=== PATIENT | male | born 2005 | race Caucasian/White ===

== ENCOUNTER 2025-09-22 16:12 | Outpatient (AMB) | payer OTHER, SELFPAY ==
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
[2025-09-22 16:18] VITALS: BP 140/65; PULSE 83; RESP 18; TEMP 36.4; O2SAT 98; BMI 22.4
--- OUTSIDE RECORDS SUMMARY | 2025-09-22 19:06 | XMS_ITS ---
Author Name [facility] Organization Unknown Care Team Organization Name Specialty Phone Email Start Date End Da te [facility] ([facility])
--- OUTSIDE RECORDS SUMMARY | 2025-09-22 19:06 | XMS_ITS | Encounter Summary ---
Author Organization [facility] Address [address] [place] [address] Phone Care Team Providers Care Motion Picture Camera Lens Technician Name Role Phone Manuel Elena MD Primary Care Provider [phone] Reason for Visit * Reason Comments Med Change Request Encounter Details Date Type Department Care Team (Late st Contact Info) Description 09/19/2023 Refill [facility] - [place] [address] [place] [address] Manuel Elena MD [address] [place] [address] Persistent depressive disorder Social History Tobacco Use Types Packs/Day Years Used Date Smoking Tobacco: Never Smokeless Tobacco: Never Alcohol Use Standard Drinks/Week Comments Never 0 (1 standard drink = 0.6 oz pur e alcohol) Hunger/Food Answer Date Recorded In the last 12 months, did y ou or your family ever eat less than you felt you should because there wasn't enough money for food? No 10/20/2022 Stable Housing Answer Date Recorded Are you worried that in the next 2 months you may not have stable housing? No 10/20/2022 Transportation Concerns Answer Date Rec orded In the last 12 months, have you or your family ever had to go without healthcare because you didn't have a way to get there? No 10/20/2022 Hazards in Home Answer Date Recorded Think about the place you li ve. Do you have problems with any of the following? Pests (mice or roaches), mold, no/not working smoke detectors, water leaks, no window guards. No 2022 Financing Utilities Answer Date Recorde d In the last 12 months, has t he electric, gas, oil, or water company threatened to shut off your services in your home? No 10/20/2022 Safety at Home Answer Date Recorded Are you or your family worried about feeling saf e in your home? No 10/20/2022 Outside Support Answer Date Recorded Do you feel that you need mo re support from other people or programs to help you care for yourself or your family? No 10/20/2022 Understanding Health Concerns Answer Da te Recorded Do you need help understandi ng your or your child's healthcare needs (diagnosis, medications, plan, etc.)? No 10/20/2022 Financing Health Concerns Answer Date R ecorded In the last 12 months, was t here a time when your child needed to see a doctor or get medications or supplies but could not because of cost? No 10/20/2022 Missing School or Work Answer Date Tunde rded Did you or your child miss s chool or work because of a health problem that could have been avoided? No 10/20/2022 Sex and Gender Information Value Date Recorded Sex Assigned at Male 09/01/2024 9:03 AM EST Legal Sex Male 4:41 PM EST Gender Identity Male 09/01/2024 9:03 AM EST Sexual Orientation Choose not to answer 09/10/20 24 2:52 PM EST documented as of this encounter Miscellaneous Notes * Telephone Encounter - Jh Jansen MD - 09/19/2023 10:52 AM EST 90D refill not appropriate, med changes underway documented in this encounter Plan of Treatment Upcoming Encounters Date Type Department Care Team (Late st Contact Info) Description 03/10/2026 10:20 AM EDT Office Visit [facility] - [address], [address] [place] [address] Manuel Elena MD [address] [place] [id number] documented as of this encounter Visit Diagnoses Diagnosis Persistent depressive disorder documented in this encounter Care Teams Motion Picture Camera Lens Technician Relationship Specialty Start Date End Date Manuel Elena MD [address] [place] [id number] PCP - General 11/14/16 documented as of this encounter
--- OUTSIDE RECORDS SUMMARY | 2025-09-22 19:06 | XMS_ITS | Encounter Summary ---
Author Organization [facility] Address [address] [place] [address] Phone Care Team Providers Care Loan Teller Name Role Phone Manuel Elena MD Primary Care Provider Reason for Visit * Reason Comments Med Refill Encounter Details Date Type Department Care Team (Late st Contact Info) Description 07/14/2023 Refill [facility] - [place] [address] [place] [address] Manuel Elena MD [address] [place] [address] Persistent depressive disorder Social History Tobacco Use [...] encounter Miscellaneous Notes * Telephone Encounter - Floresita Morel - 07/23/2023 9:11 AM EDT scheduled * Telephone Encounter - Jazmín Peñaloza LPN - 2023 2:55 PM EDT Return call with no answer,m /l on vm to cb to discuss further the refill request. documented in this encounter Plan of Treatment Upcoming Encounters Date Type Department Care Team (Late st Contact Info) Description 03/10/2026 10:20 AM EDT Office Visit [facility] - [address], [address] [place] [address] Manuel Elena MD [address] [place] [address] documented as of this encounter Visit Diagnoses Diagnosis Persistent depressive disorder documented in this encounter Care Teams Loan Teller Relationship Specialty Start Date End Date Manuel Elena MD [address] [place] [address] PCP - General 11/14/16 documented as of this encounter
--- OUTSIDE RECORDS SUMMARY | 2025-09-22 19:06 | XMS_ITS | Encounter Summary ---
Author Organization [facility] Address [address] [place] [address] Phone Care Team Providers Care Ultrasound Technologist Sonographer Name Role Phone Manuel Elena MD Primary Care Provider [phone] Reason for Visit * Reason Onset Date Comments Med Refill 04/03/2023 Encounter Details Date Type Department Care Team (Late st Contact Info) Description 04/03/2023 Refill [facility] - [place] [address] [place] [address] Manuel Elena MD [address] [place] [address] Persistent depressive disorder Social History Tobacco Use [...] Sexual Orientation Choose not to answer 09/10/20 2:52 PM EST documented as of this encounter Miscellaneous Notes * Telephone Encounter - Jazmín Peñaloza LPN - 04/03/2023 3:20 PM EDT Refill request for Lexapro 10 mg Last fill was 03/06/23 Last wcv was 09/2022 Last med check was 03/06/23 Please send to [facility] documented in this encounter Plan of Treatment Upcoming Encounters Date Type Department Care Team (Late st Contact Info) Description 03/10/2026 10:20 AM EDT Office Visit [facility] - [address], [address] [place] [address] Manuel Elena MD [address] [place] [address] documented as of this encounter Visit Diagnoses Diagnosis Persistent depressive disorder documented in this encounter Care Teams Ultrasound Technologist Sonographer Relationship Specialty Start Date End Date Manuel Elena MD [address] [place] [address] PCP - General 11/14/16 documented as of this encounter
--- OUTSIDE RECORDS SUMMARY | 2025-09-22 19:06 | XMS_ITS | Encounter Summary ---
Author Organization [facility] Address [address] [place] [address] Phone Care Team Providers Care Prepress Proofer Name Role Phone Manuel Elena MD Primary Care Provider [phone] Reason for Visit * Reason Comments Med Refill Encounter Details Date Type Department Care Team (Late st Contact Info) Description 06/29/2022 Refill [facility] [place] [address] [place] [address] Dominique Panda MD [address] [place] [address] Nausea with vomiting, unspecified; Abnormal weight loss Social History Tobacco Use Types Packs/Day Years Used Date Smoking Tobacco: Never Assessed Hunger/Food Answer Date Recorded In the last 12 months, did y ou or your family ever eat less than you felt you should because there wasn't enough money for food? No 06/14/2021 Stable Housing Answer Date Recorded Are you worried that in the next 2 months you may not have stable housing? No 06/14/2021 Transportation Concerns Answer Date Rec orded In the last 12 months, have you or your family ever had to go without healthcare because you didn't have a way to get there? No 06/14/2021 Hazards in Home Answer Date Recorded Think about the place you li ve. Do you have problems with any of the following? Pests (mice or roaches), mold, no/not working smoke detectors, water leaks, no window guards. No 2020 Financing Utilities Answer Date Recorde d In the last 12 months, has t he electric, gas, oil, or water company threatened to shut off your services in your home? No 06/14/2021 Safety at Home Answer Date Recorded Are you or your family worried about feeling saf e in your home? No 06/14/2021 Outside Support Answer Date Recorded Do you feel that you need mo re support from other people or programs to help you care for yourself or your family? No 06/14/2021 Understanding Health Concerns Answer Da te Recorded Do you need help understandi ng your or your child's healthcare needs (diagnosis, medications, plan, etc.)? No 06/14/2021 Financing Health Concerns Answer Date R ecorded In the last 12 months, was t here a time when your child needed to see a doctor or get medications or supplies but could not because of cost? No 06/14/2021 Missing School or Work Answer Date Tunde rded Did you or your child miss s chool or work because of a health problem that could have been avoided? No 06/14/2021 Sex and Gender Information Value Date Recorded Sex Assigned at Male 09/01/2024 9:03 AM EST Legal Sex Male 4:41 PM EST Gender Identity Male 09/01/2024 9:03 AM EST Sexual Orientation Choose not to answer 09/10/20 24 2:52 PM EST documented as of this encounter Plan of Treatment Upcoming Encounters Date Type Department Care Team (Late st Contact Info) Description 03/10/2026 10:20 AM EDT Office Visit [facility] - [address], [address] [place] [address] Manuel Elena MD [address] [place] [id number] documented as of this encounter Visit Diagnoses Diagnosis Nausea with vomiting, unspecified Abnormal weight loss Loss of weight documented in this encounter Care Teams Prepress Proofer Relationship Specialty Start Date End Date Manuel Elena MD [address] [place] [address] PCP - General 11/14/16 documented as of this encounter
--- OUTSIDE RECORDS SUMMARY | 2025-09-22 19:06 | XMS_ITS | Clinical Summary ---
Author Organization [facility] Address [address] [place] [address] Phone Care Team Providers Care Vice President Underwriting Name Role Phone Manuel Elena MD Primary Care Provider [phone] Allergies Active Allergy Reactions Criticality Noted Date Comments Penicillin V Rash Low Medications Denta 5000 Plus 1.1 % cream USE A PEA SIZE AMOUNT TO BRUSH AT NIGHT. SPIT DO NOT RINSE 03/26/2021 Active Melatonin-Pyrid oxine (MELATIN PO) Take 5 mg by mouth. Active amphetamine-dex troamphetamine XR (Adderall XR) 10 MG 24 hr capsuleIndicati ons:Inattention Take 1 capsule (10 mg total) by mouth every morning. 30 capsule 08/28/2024 Active buPROPion XL 300 MG 24 hr tabletIndicatio ns:Severe episode of recurrent major depressive disorder, without psychotic features TAKE 1 TABLET BY MOUTH EVERY DAY 90 tablet 11/27/2024 Active Active Problems Problem Noted Date Diagnosed Date Attention and concentration deficit 2024 Overview (08/14/2024): 07/17/24 PF Increase of Wellbutrin XL from 150 to 300 has been a little helpful with depression and motivation but still very depressed and anxious, PHQ-9= 20, ROSARIO-7=13, passive SI no plan or intent. Feels hopeless about medication or therapy helping, not open to therapy at this time. Struggling to complete school work, stay motivated and manage organizational tasks. He reports ongoing suspicion he has ADHD, plan to seek more collateral info and he will complete ADHD adult self-report scale. Follow up visit scheduled 08/14. 08/14/24 PF Seen for med check. Does not know if Wellbutrin XL 300 mg helps or not but wants to continue it. PHQ-9 = 21, ROSARIO-7= 13. Chronic passive SI no plan or intent. Reports falling behind in all classes and socially isolated. Believes he has ADHD and that focus issues and difficulty with school work are the primary thing fueling depression. Adult self report ADHD scale=5, abnormal. Denies substance use. States he has not re-engaged with therapy because I don't have time and also expresses it has not been very helpful in the past. This story writer to reach out to his mom for collateral info and to discuss possible next steps with PCP and other colleagues, then reach out to Stan with update. Next med check TBD. Major depressive disorder 11/15/2022 Overview (08/14/2024): 11/2022: Met with [facility], trial of fluoxetine 12/2022: Tolerating fluoxetine 10mg. Still having significant symptoms for depression. Suicidal thinking. - Increase fluoxetine to 30mg daily - Encouraged daily exercise 03/06/2023: PHQ-9 score still 16 after 6 weeks on fluoxetine. Still having insomnia. - Will taper off fluoxetine and ramp up on escitalopram - Will continue to follow with [facility] - Encouraged partial hospitalization this summer05/08/2023 Completed 3.5 weeks in [facility] 04/11-05/04/2023 w/out much effect. PHQ-9 score of 13. SI 3-4x/wk, difficulty falling asleep nightly. Taking 10mg escitalopram daily in the morning. Plan to begin with weekly outpatient therapist, increased fluoxetine to 15 mg 06/18/2023 Ongoing suicidal thinking; denies intent or plan. Completed episode of care with [facility]; meeting weekly with outpatient therapist Keshia Walker. 08/02/2023 Ongoing passive suicidal thinking. Has weekly outpatient therapy. Increasing Lexapro to 20 mg daily 01/29/24 PF Seen for 30 minute med check appointment. Reports he is very depressed, does not feel either fluoxetine or escitalopram ever helped much at all. PHQ-9 23. Passive SI, occasionally thinks about overdosing but states clearly he will not act on this, agrees to reach out for help if this changes, has crisis resource info. Plan to taper off escitalopram and then start Effexor XR 37.5 mg, follow up scheduled in person for 02/20. Agrees to sign release for mom only to give basic info about med changes. Has upcoming appts scheduled with Jaki. 02/21/24 PF med check- has now been off Lexapro x 5 days, having more fatigue and frequent uncomfortable tingling sensations when reducing to 10 and now when stopping. Plan to take Lexapro 5 mg x 3 days, then stop, may take 5 every other day x 1 wk if uncomfortable. PHQ-9 19, ROSARIO-7 8. Chronic SI but states he will not act on it. States fatigue and concentration are major issues. Plan to start Wellbutrin XL 150 mg daily once off Lexapro. Med check 03/24. 03/10/2024 Started Wellbutrin XL 150mg 02/27/2024. Concerns for side effects of bad dreams, increased anxiety (with acknowledgement that this may be circumstantial). Med check 03/24. 06/17/24 PF Last seen 4 months ago, started Wellbutrin XL 150 and not seen since due to Stan not following up and insurance issues.Continues to report severe depression symptoms, feels apathetic and hopeless, reports passive SI no plan or intent. PHQ-9=22, ROSARIO-7=10. Does not feel Wellbutrin XL150 has helped but not sure. Agrees to re-engage in therapy with Jaki at [facility]. Expresses concerns that he may have ADHD and that he has difficulty learning in school. Agrees to sign release for mom for collateral re: ADHD symptom history and possible further detailed learning evaluation at an independent agency. Plan to increase Wellbutrin Xl to 300 mg daily. Med check 07/17. 07/17/24 PF Increase of Wellbutrin XL from 150 to 300 has been a little helpful with depression and motivation but still very depressed and anxious, PHQ-9= 20, ROSARIO-7=13, passive SI no plan or intent. Feels hopeless about medication or therapy helping, not open to therapy at this time. Struggling to complete school work, stay motivated and manage organizational tasks. He reports ongoing suspicion he has ADHD, plan to seek more collateral info and he will complete ADHD adult self-report scale. Follow up visit scheduled 08/14. 08/14/24 PF Seen for med check. Does not know if Wellbutrin XL 300 mg helps or not but wants to continue it. PHQ-9 = 21, ROSARIO-7= 13. Chronic passive SI no plan or intent. Reports falling behind in all classes and socially isolated. Believes he has ADHD and that focus issues and difficulty with school work are the primary thing fueling depression. Adult self report ADHD scale=5, abnormal. Denies substance use. States he has not re-engaged with therapy because I don't have time and also expresses it has not been very helpful in the past. This story writer to reach out to his mom for collateral info and to discuss possible next steps with PCP and other colleagues, then reach out to Stan with update. Next med check TBD. Assessment & Plan (02/25/2024 12:25 PM EDT): Ongoing depression and passive suicidal thinking. Engaged with [facility] services for support with career and education advancement. Has stopped Lexapro completely, plan to start Wellbutrin today. Plan to meet with [facility] for summer support, and with Ellie Phillips for short term medication management, while working on connecting to community or campus mental health services. Assessment & Plan (11/22/2023 4:21 PM EST): Ongoing depression and passive suicidal thinking. Is no longer engaged with therapist. Stan was able to meet with Jkai Garcia at [facility] today He will meet with her over the next few weeks and will meet with Ellie Phillips for medication consultation next month Assessment & Plan (09/07/2023 4:24 PM EST): There has not been any improvement on increase to Lexapro 20 mg. I would like to consult with my psychiatry colleagues at [facility] or [facility] for consultation and to consider change to trazodone or to an SNRI such as duloxetine. Will follow up in next few days. Recommend returning to therapy with Henna Walker - recommend contacting her to set up appointment, and arrange recheck here in next month Assessment & Plan (08/02/2023 2:44 PM EST): Ongoing depression with passive suicidal thoughts. Recommend increase of Lexapro to 20 mg daily Strongly recommend therapy followup, possibly increasing to more than once weekly Offered [facility] check in today - declined for now Reviewed crisis services - Stan says that he can contact his therapist, [facility], or crisis if needed. Has appt in 4 days with therapist. Recheck medication in 3-4 weeks, sooner if needed. If not helpful, will make psychiatry/[facility] referral for re-evaluation as he has been on 2 SSRIs Assessment & Plan (06/25/2023 2:58 PM EDT): Negative thinking, worry thoughts and increased stress in context of the new school year; ongoing thoughts that he would be better off , what's the point thoughts; denies suicidal intent or plan. Has begun meeting with weekly outpatient therapist, Keshia Walker. Taking Lexapro, 10mg daily; effect unclear. PLAN: Continue with weekly outpatient therapy. Communicate and consult regularly with PCP regarding medication. Assessment & Plan (05/15/2023 6:03 AM EDT): >>ASSESSMENT AND PLAN FOR MODERATE EPISODE OF RECURRENT MAJOR DEPRESSIVE DISORDER WRITTEN ON 12/06/2022 9:45 AM BY FAUSTO GARLAND MD Has met with [facility] who have concerns for major depressive disorder. No current suicidal thinking. - Dosing plan and possible medication side effects were discussed - Will start test dose of fluoxetine 10mg and will call family in one week in one week to assess tolerance - Will continue to meet with [facility] for four additional sessions - Will discuss effectiveness of fluoxetine via a video conference on 01/10/2023 after next visit with [facility] Assessment & Plan (05/15/2023 6:04 AM EDT): Escitalopram not fully effective. Recommend increase to 15 mg and recheck in 1-2 weeks. Continue with therapist. If still not effective, consider further increase to 20 mg. Assessment & Plan (05/08/2023 11:44 AM EDT): Negative self talk, passive SI 3-4x/wk, difficulty falling asleep nightly, PHQ-9 of 13. Completed 3.5 weeks in [facility] 04/11-05/04/2023. Taking 10mg escitalopram daily in the morning. Some forward thinking, working towards goal to get a job. Plan to meet with new outpatient therapist, Keshia ?. [facility] appointment scheduled for later this fall. Assessment & Plan (03/06/2023 5:26 PM EDT): PHQ-9 score still 16 after 6 weeks on fluoxetine. Still having insomnia. - Will taper off fluoxetine and ramp up on escitalopram - Will continue to follow with [facility] - Encouraged partial hospitalization this summer Assessment & Plan (01/10/2023 1:47 PM EDT): Tolerating fluoxetine 10mg. Still having significant symptoms for depression. Suicidal thinking. 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 Difficulty with school and relationships. Current suicidal ideation; denies intent or plan. PLAN: 1. Stan and his mom will return for an appointment with PCP, petra, to discuss medication for depression. 2. Stan and his mom will access crisis support services if needed to keep Stan safe. 3. Stan will meet with [facility] provider for at least 4 follow up visits to continue learning cognitive behavioral strategies for managing low moods, negative and anxious thinking. 4. Stan will participate in regular exercise, at least every other day. Intractable vomiting 12/04/2021 Overview (05/23/2022): Normal lactose breath test with GI/Dr. Daniel 04/2022 Assessment & Plan (03/11/2022 2:43 PM EDT): Improvement in vomiting and nausea. Still with limited appetite, however working on increasing PO intake. States omeprazole has provided some relief since starting. - Continue PPI - referred to GI for further evaluation for ongoing symptoms - has appt scheduled with nutrition tomorrow, encouraged to try and identify strategy for improving caloric intake. Assessment & Plan (12/04/2021 1:24 PM EDT): Daily vomiting and nausea causing limited food intake. Otherwise negative ROS and non focal exam. Will do screen lab and abdominal US to initiate work up. Will also start omeprazole for possible gastritis and zofran as needed for nausea to attempt to increase intake. May consider GI referral vs eating disorder management based on results. Advised to schedule follow up with PCP next week. Weight loss 12/04/2021 Assessment & Plan (03/11/2022 2:41 PM EDT): Weight gain since prior visit. Reports twice daily Boost nutritional supplements. Working on increasing caloric intake. Discussed reassuring bloodwork and imaging. Headache 06/09/2020 Overview (06/09/2020): At the back of his head, noted at 14 yo PE, feels tired. Adjustment disorder 04/13/2016 Overview (08/18/2019): Saw Rufina 04/2017 - no record of following up. Also referred to [facility]. 05/15/2018 Still some behavioral issues but does not want to go for counseling. 03/2019 - Worsening behavioral concerns, referred to therapy, had [facility] eval recommending therapy 06/2019-School psych testing showed negative self perception/dysthymia, some difficulty with math, slow processing speed Assessment & Plan (10/20/2022 4:45 PM EST): Still with dysthymic mood. Will re-engage with [facility] and consider medication. Assessment & Plan (06/14/2021 4:32 PM EDT): Stan states that he is doing better. He is not in counseling at the moment. He does get anxious about not doing well in school. He has supports through an IEP which he feels is helping. Mother feels he has done much better since transferring from [employer] to [employer] Assessment & Plan (06/09/2020 4:44 PM EDT): May visit with Rufina Sears at [facility] if feeling worse this year Assessment & Plan (04/04/2019 8:39 AM EDT): Significant concern for depression and anxiety. Strongly encourage ongoing therapy Discussed medication -- will consult with [facility]. While Stan does not think he needs medication, I encouraged him to think about it and gave information on medication Gave contact information for crisis and for text help line ([phone]) Will follow-up by phone in one week, sooner if needed Assessment & Plan (05/16/2018 7:33 AM EDT): Recommended f/u counseling to mom. Myopia 04/13/2016 Overview (05/15/2018): Referred to ophthal Assessment & Plan (06/14/2021 4:33 PM EDT): Has glasses. Sees eye doctor regularly. Resolved Problems Problem Noted Date Diagnosed Date Resolved Date Fracture of left distal radius 02/08/2018 04/26/2018 Overview (02/08/2018): Seen at [facility] 01/2018 Encounters Date Type Department Care Team Description 07/05/2025 Refill [facility] - [address] [address] Manuel Elena MD Inattention from Last 3 Months Immunizations Immunization Administration Dates Next Due DTaP 12/12/2006 DTaP / Hep B / IPV 02/20/2006,2005, 006 HPV Vaccine 9 Valent 06/09/2020,05/27/2019 Hep A, ped/adol 06/14/2021,06/09/2020 Hib (PRP-T) 12/12/2006, 6,2005,10/17 IPV 05/09/2011 Influenza, injectable, MDCK, preservative free, quadrivalent 07/09/2021,05/16/2020 Influenza, injectable, quadrivalent 05/17/2020 Influenza, injectable, quadr ivalent, preservative free 07/23/2022,08/30/2019 MMR 06/26/2012,05/05/2010 Meningococcal Conj (Menactra) MCV4P 04/30/2017 Meningococcal Conj (Menquadfi) MCV4TT 10/20/2022 Tdap 06/09/2020,04/25/2013 Varicella 06/26/2012,05/09/2011 Family History Relation Name Status Comments Father Father: GERD Maternal Grandfather Mat GFa ther: kidney disorder, migraine Maternal Grandmother Mat GMo ther: scoliosis, aneurysm Mother Alive Mother: allergi c rhinitis, eczema, food allergy, migraine Other 1 GERD Other 2 kidney disorder , migraine Other 3 scoliosis, aneu rysm Other 4 substance abuse Other 5 Alive allergic rhinit is, eczema, food allergy, migraine Other 6 Alive Brother - aller gic rhinitis, eczema; Sister - allergic rhinitis Paternal Grandfather Pat GFa ther: substance abuse Social History Tobacco Use Types Packs/Day Years Used Date Smoking Tobacco: Never Smokeless Tobacco: Never Tobacco Cessation:Counseling Given: Not Answered Alcohol Use Standard Drinks/Week Comments Never 0 (1 standard drink = 0.6 oz pur e alcohol) Hunger/Food Answer Date Recorded In the last 12 months, did y ou or your family ever eat less than you felt you should because there wasn't enough money for food? Yes 04/22/2025 Stable Housing Answer Date Recorded Are you worried that in the next 2 months you may not have stable housing? No 04/22/2025 Transportation Concerns Answer Date Rec orded In the last 12 months, have you or your family ever had to go without healthcare because you didn't have a way to get there? No 04/22/2025 Hazards in Home Answer Date Recorded Think about the place you li ve. Do you have problems with any of the following? Pests (mice or roaches), mold, no/not working smoke detectors, water leaks, no window guards. No 2024 Financing Utilities Answer Date Recorde d In the last 12 months, has t he electric, gas, oil, or water company threatened to shut off your services in your home? No 04/22/2025 Safety at Home Answer Date Recorded Are you or your family worried about feeling saf e in your home? No 04/22/2025 Outside Support Answer Date Recorded Do you feel that you need mo re support from other people or programs to help you care for yourself or your family? No 04/22/2025 Understanding Health Concerns Answer Da te Recorded Do you need help understandi ng your or your child's healthcare needs (diagnosis, medications, plan, etc.)? No 04/22/2025 Financing Health Concerns Answer Date R ecorded In the last 12 months, was t here a time when your child needed to see a doctor or get medications or supplies but could not because of cost? Yes 04/22/2025 Missing School or Work Answer Date Tunde rded Did you or your child miss s chool or work because of a health problem that could have been avoided? No 04/22/2025 Child Education Answer Date Recorded Do you have concerns about y our/your child's learning or behavior in school, preschool, or daycare? Yes 04/22/2025 Sex and Gender Information Value Date Recorded Sex Assigned at Male 09/01/2024 9:03 AM EST Legal Sex Male 4:41 PM EST Gender Identity Male 09/01/2024 9:03 AM EST Sexual Orientation Choose not to answer 09/10/20 2:52 PM EST Last Filed Vital Signs Vital Sign Reading Time Taken Comments Blood Pressure 134/82 2024 2:44 PM EDT Pulse 91 2024 2:44 PM EDT Temperature 36.9 C (98.5 F) 12/03/2021 11:39 AM EST Respiratory Rate - - Oxygen Saturation 98% 05/27/2019 2:37 PM EDT Inhaled Oxygen Concentration - - Weight 75.2 kg (165 lb 12.8 oz) 2024 2:44 PM EDT Height 183.5 cm (6' 0.25 ) 05/11/2023 3:53 PM ED T Body Mass Index - - Plan of Treatment Upcoming Encounters Date Type Department Care Team (Late st Contact Info) Description 03/10/2026 10:20 AM EDT Office Visit [facility] - [address], [address] [place] [address] Manuel Elena MD [address] [place] [address] Health Maintenance Due Date Last Done Comments Men B Vaccine (1 of 2 - Standard) 2021 Influenza Vaccines (#1) 2025 10/06/19, 07/23/2022, 07/09/2021, Additional history exists COVID-19 Vaccine ( - season) 2025 08/05/2022, 10/08/2021, 02/26/2021, Additional history exists DTaP,Tdap,and Td Vaccines (7 - Td or Tdap) 06/09/2030 06/09/2020, 04/25/2013, 12/12/2006, Additional history exists Hepatitis B Vaccines Completed 02/20/2006, 2005, 2005 HIB Vaccines Completed 12/12/2006, 01/24, 2005, Additional history exists IPV Vaccines Completed 05/09/2011, 01/24, 2005, Additional history exists MMR Vaccines Completed 06/26/2012, 05/05/2010 Varicella Vaccines Completed 06/26/2012, 05/09/2011 HPV Vaccines Completed 06/09/2020, 05/27/2019 Hepatitis A Vaccines Completed 06/14/2021, 06/09/20 20 Meningococcal Vaccine Completed 10/20/2022, 017 Pneumococcal Vaccine Aged Out No long er eligible based on patient's age to complete this topic Insurance [facility] BLUE CARD OUT OF STATE Care Teams Vice President Underwriting Relationship Specialty Start Date End Date Manuel Elena MD [address] [place] [id number] PCP - General 11/14/16
--- OUTSIDE RECORDS SUMMARY | 2025-09-22 19:06 | XMS_ITS | Encounter Summary ---
Author Organization [facility] Address [address] [place] [address] Phone Care Team Providers Care Economics Lecturer Name Role Phone Manuel Elena MD Primary Care Provider [phone] Reason for Visit * Reason Comments Med Refill Encounter Details Date Type Department Care Team (Late st Contact Info) Description 05/02/2023 Refill [facility] [place] [address] [place] [address] Manuel Elena MD [address] [place] [address] Persistent depressive disorder Social History Tobacco Use [...] Description 03/10/2026 10:20 AM EDT Office Visit [facility] - [address], [address] [place] [address] Manuel Elena MD [address] [place] [address] documented as of this encounter Visit Diagnoses Diagnosis Persistent depressive disorder documented in this encounter Care Teams Economics Lecturer Relationship Specialty Start Date End Date Manuel Elena MD [address] [place] [address] PCP - General 11/14/16 documented as of this encounter
--- OUTSIDE RECORDS SUMMARY | 2025-09-22 19:06 | XMS_ITS | Encounter Summary ---
Author Organization [facility] Address [address] [place] [address] [place] [address] Phone Care Team Providers Care Nautical Instrument Mechanic Name Role Phone Manuel Elena MD Primary Care Provider [phone] Encounter Details Date Type Department Care Team (Latest Contact Info) Description 12/05/2021 Transcribe Orders Virtual Department [address] [place] [address] Dominique Panda MD [address] [facility], [facility] [address] [place] [address] [email or web address] Nausea and vomiting, intractability of vomiting not specified, unspecified vomiting type (Primary Dx); Vomiting associated with bulimia nervosa with nausea Social History Tobacco Use Types Packs/Day Years Used Date Smoking Tobacco: Never Smokeless Tobacco: Never Alcohol Use Standard Drinks/Week Comments No 0 (1 standard drink = 0.6 oz pur e alcohol) Sex and Gender Information Value Date Recorded Sex Assigned at Not on file Legal Sex Male 9:09 PM EDT Gender Identity Not on file Sexual Orientation Not on file documented as of this encounter Plan of Treatment Not on file documented as of this encounter Results * US ABDOMEN COMPLETE (PEDI) (12/07/2021 9:49 AM EDT) Anatomical Region Laterality Modality Abdomen Ultrasound 12/07/2021 11:4 6 AM EDT Impressions 12/07/2021 11:48 AM EDT No significant abnormality of the visualized upper abdominal visceral structures. POS - [id number] Narrative 12/07/2021 11:48 AM EDT FINDINGS: The gallbladder is within normal limits in appearance without evidence of cholelithiasis or focal wall thickening. The intrahepatic bile ducts are nondilated and the common duct is within normal limits at 0.3 cm in diameter. The liver and spleen are within normal limits in size and display homogeneous parenchymal echotexture. Hepatopedal flow demonstrated in the portal vein on color Doppler imaging. The pancreas and kidneys are within normal limits in size and sonographic appearance, as are the visualized portions of the proximal abdominal aorta and IVC. Procedure Note Jh Estrada MD - 12/07/2021 FINDINGS: The gallbladder is within normal limits in appearance without evidence ofcholelithiasis or focal wall thickening. The intrahepatic bile ducts arenondilated and the common duct is within normal limits at 0.3 cm indiameter. The liver and spleen are within normal limits in size anddisplay homogeneous parenchymal echotexture. Hepatopedal flowdemonstrated in the portal vein on color Doppler imaging. The pancreas andkidneys are within normal limits in size and sonographic appearance, dhruv the visualized portions of the proximal abdominal aorta and IVC. IMPRESSION: No significant abnormality of the visualized upper abdominal visceralstructures. POS - [id number] us Dominique Panda MD IMG US ABDOMEN Final Resu lt documented in this encounter Visit Diagnoses Diagnosis Nausea and vomiting, intractability of vomiting not specified, unspecified vomiting type- Primary Vomiting associated with bulimia nervosa with nausea Vomiting associated with bulimia nervosa with nausea Nausea and vomiting Nausea with vomiting documented in this encounter Care Teams Nautical Instrument Mechanic Relationship Specialty Start Date End Date Manuel Elena MD [address] [place] [address], [facility] [address] [place] [address] PCP - General Pediatrics 01/30/18 documented as of this encounter Additional Source Comments The information contained in this document represents components of the legal health record. It is not the complete legal health record.[facility]
--- OUTSIDE RECORDS SUMMARY | 2025-09-22 19:06 | XMS_ITS | Clinical Summary ---
Author Organization [facility] Address [address] [place] [address] Phone Care Team Providers Care Stitch Bonder Machine Operator Helper Name Role Phone Manuel Elena MD Primary Care Provider [phone] Allergies Active Allergy Reactions Criticality Noted Date Comments Penicillins Rash Low 12/18/2017 Medications No known medications Active Problems No known active problems Social History Tobacco Use Types Packs/Day Years Used Date Smoking Tobacco: Never Smokeless Tobacco: Never Alcohol Use Standard Drinks/Week Comments No 0 (1 standard drink = 0.6 oz pur e alcohol) Education Answer Date Recorded Are you interested in more education? Not on melissa e 01/19/2023 Are you concerned about learning? Not on file 01/19/2023 No 01/19/2023 No 01/19/2023 Digital Access Answer Date Recorded No 02/17/2023 No 02/17/2023 No 02/17/2023 Reliable internet access at home? Not on file 02/17/2023 Device with a working camera? Not on file Sex and Gender Information Value Date Recorded Sex Assigned at Not on file Legal Sex Male 9:09 PM EDT Gender Identity Not on file Sexual Orientation Not on file Last Filed Vital Signs Vital Sign Reading Time Taken Comments Blood Pressure 114/74 01/30/2018 5:54 PM EDT Pulse 78 01/30/2018 5:54 PM EDT Temperature 36.9 C (98.4 F) 01/30/2018 5:54 PM EDT Respiratory Rate 20 01/30/2018 5:54 PM EDT Oxygen Saturation 98% 01/30/2018 5:02 PM EDT Inhaled Oxygen Concentration - - Weight 37 kg (81 lb 9.6 oz) 02/19/2018 2:48 PM E DT Height 147.3 cm (4' 9.99 ) 02/19/2018 2:48 PM ED T Body Mass Index 17.06 02/19/2018 2:48 PM EDT Plan of Treatment Health Maintenance Due Date Last Done Comments DEVELOPMENTAL/BEHAVIORAL SCREENING (PHQ, PSC, or SWYC) 2008 DEPRESSION SCREENING 2017 SMOKING Hx and SMOKELESS TOBACCO SCREENING 2018 MENINGOCOCCAL VACCINES (B) (1 of 2 - Standard) 2021 HEPATITIS C SCREENING 2023 HIV ONE-TIME SCREENING (18-65 YEARS) 2023 INFLUENZA VACCINE (#1) 2025 , 05/17/2020, 05/16/2020, Additional history exists COVID-19 VACCINE ( - season) 2025 02/26/2021, 02/05/2021 COMBINED DTaP,Tdap,Td (7 - Td or Tdap) 06/09/2030 06/09/2020, 04/25/2013, 12/12/2006, Additional history exists HIB VACCINES Completed 12/12/2006, 01/24, 2005, Additional history exists MMR VACCINES Completed 06/26/2012, 05/05/2010 VARICELLA VACCINES Completed 06/26/2012, 05/09/2011 MENINGOCOCCAL VACCINES (ACWY) Aged Out 04/30/2017 No longer eligible based on patient's age to complete this topic HPV VACCINES Completed 06/09/2020, 05/27/2019 HEPATITIS A VACCINES Completed 06/14/2021, 06/09/20 ADOLESCENT UNIVERSAL LIPID SCREENING Completed 12/11/2022 PNEUMOCOCCAL VACCINES (0-49 years) Aged Out No longer eligible based on patient's age to complete this topic Medical Devices Not on file Procedures Procedure Name Priority Date/Time Associated Diagnosis Comments LIPID PANEL Routine 12/11/2022 9:15 AM EDT Encounter for screening for lipoid disorders from Last 3 Months or Most Recently Relevant to Health Maintenance Results * (ABNORMAL) Lipid panel (12/11/2022 9:15 AM EDT) HDL 58 mg/dL [facility] Comment: Interpretation <40 mg/dL: Low HDL cholesterol (major risk factor for CHD) Greater than or equal to 60 mg/dL: High HDL cholesterol ( negative risk factor for CHD) HDL - cholesterol is affected by a number of factors, e.g. smoking, excerise, hormones, sex and age. CHOLESTEROL 162 0 - 169 mg/dL [facility] Comment: Pediatric Reference Ranges for 2 to 18 years Acceptable: Less than 170 mg/dL Borderline: 170 - 199 mg/dL High: Greater than or equal to 200 mg/dL TRIGLYCERIDES 75 30 - 160 mg/dL [facility] LDL 89 50 - 129 mg/dL [facility] Comment: LDL levels in terms of risk for coronary heart disease: <100 mg/dL: Optimal 100-129 mg/dL: Near or above optimal 130-159 mg/dL: Borderline high 160-189 mg/dL: High >190 mg/dL: Very High CARDIAC RISK RATIO 2.8(L) 3.4 - 5.0 C [facility] 12/11/2022 9:15 AM EDT 12/11/2022 9:16 AM EDT Stuart Richter MD LAB BLOOD BKR ORDERABLES Final Result Performing Organization Address City/State/[facility] Co de Phone Number [facility] [address] [place] [address] from Last 3 Months or Most Recently Relevant to Health Maintenance Insurance [facility] DAVID TAVARES MD [facility] DAVID TAVARES MD [facility] Member Subscriber Plan / Payer (Ef fective 2022-Present) Name:Stan Tejada Relation to Subscriber:Child Name:JEANCARLOS TEJADA Angelita Date of :1900 (Home) Address: [address] [place] Payer ID:[id number] (NAIC) Type:HMO Address: [address] [place], [place] Member Subscriber Plan / Payer (Ef fective 2022-Present) Name:Stan Tejada Relation to Subscriber:Child Name:JEANCARLOS TEJADA Date of :1900 (Home) Address: [address] [place] Payer ID:[id number] (NAIC) Type:O Address: [address] [place], [place] Member Subscriber Plan / Payer (Ef fective 2022-Present) Name:Stan Tejada Relation to Subscriber:Child Name:JEANCARLOS TEJADA Date of :1900 (Home) Address: [address] [place] Payer ID:[id number] (NAIC) Type:O Address: [address] [place], [place] Care Teams Stitch Bonder Machine Operator Helper Relationship Specialty Start Date End Date Manuel Elena MD [address] [place] [address], [address] [place] [address] [email or web address] PCP - General Pediatrics 01/30/18 Additional Source Comments The information contained in this document represents components of the legal health record. It is not the complete legal health record.[facility]
--- OUTSIDE RECORDS SUMMARY | 2025-09-22 19:06 | XMS_ITS | Encounter Summary ---
Author Organization [facility] Address [address] [place] [address] Phone Care Team Providers Care Front Desk Clerk Name Role Phone Manuel Elena MD Primary Care Provider [phone] Reason for Visit * Reason Comments Med Refill Encounter Details Date Type Department Care Team (Late st Contact Info) Description 04/06/2023 Refill [facility] - [address], [address] [place] [address] Stuart Richter MD Persistent depressive disorder Social History Tobacco Use [...] Description 03/10/2026 10:20 AM EDT Office Visit [facility] - [address], [address] [place] [address] Manuel Elena MD [address] [place] [address] documented as of this encounter Visit Diagnoses Diagnosis Persistent depressive disorder documented in this encounter Care Teams Front Desk Clerk Relationship Specialty Start Date End Date Manuel Elena MD [address] [place] [address] PCP - General 11/14/16 documented as of this encounter
--- OUTSIDE RECORDS SUMMARY | 2025-09-22 19:06 | XMS_ITS | Encounter Summary ---
Author Organization [facility] Address [address] [place] [address] Phone Care Team Providers Care Legislative Advocate Name Role Phone Manuel Elena MD Primary Care Provider [phone] Encounter Details Date Type Department Care Team (Late st Contact Info) Description 05/02/2017 Conversion Encounter [address], [address] [address] Manuel Elena MD [address] [place] [address] Social History Tobacco Use Types Packs/Day Years Used Date Smoking Tobacco: Never Assessed Sex and Gender Information Value Date Recorded [...] Description 03/10/2026 10:20 AM EDT Office Visit [address], [address] [place] [address] Manuel Elena MD [address] [place] [address] documented as of this encounter Visit Diagnoses Not on filedocumented in this encounter Care Teams Legislative Advocate Relationship Specialty Start Date End Date Manuel Elena MD [address] [place] [address] PCP - General 11/14/16 documented as of this encounter
--- OUTSIDE RECORDS SUMMARY | 2025-09-22 19:06 | XMS_ITS | Encounter Summary ---
Author Organization [facility] Address [address] [place] [address] Phone Care Team Providers Care Executive Vice President Name Role Phone Manuel Elena MD Primary Care Provider [phone] Reason for Visit * Reason Onset Date Comments Med Refill 07/05/2025 Encounter Details Date Type Department Care Team (Late st Contact Info) Description 07/05/2025 Refill [facility] [place] [address] [place] [address] Manuel Elena MD [address] [place] [address] Inattention Social History Tobacco Use Types Packs/Day Years [...] encounter Miscellaneous Notes * Telephone Encounter - Ellie Phillips NP - 07/07/2025 8:20 AM EDT Patient has not responded to attempts to schedule follow up * Telephone Encounter - Susie Hernandez LPN - 07/06/2025 10:51 AM EDT Refill requested for Stan???s: amphetamine-dextroamphetamine XR (Adderall XR) 10 MG 24 hr capsule Refill request source: [facility] This medication was last refilled on 08/28/24. Last medication check or well visit: 08/14/24 Next appointment scheduled? Yes Date: 03/10/26 If no future appointment scheduled, message sent to appointments. [facility]/pharmacy #[id number] - [place], [place] - [address] [facility] [facility] [address] [facility] [address] PCP: Manuel Elena MD documented in this encounter Plan of Treatment Upcoming Encounters Date Type Department Care Team (Late st Contact Info) Description 03/10/2026 10:20 AM EDT Office Visit [facility] [place] [address], [address] [place] [address] Manuel Elena MD [address] [place] [address] documented as of this encounter Visit Diagnoses Diagnosis Inattention Other specified conditions influencing health status documented in this encounter Care Teams Executive Vice President Relationship Specialty Start Date End Date Manuel Elena MD [address] [place] [address] PCP - General 11/14/16 documented as of this encounter
== END 2025-09-22 16:31 | disposition home or self-care (01) ==
LOC: HO.HMCFMS 16:13
PROVIDERS: PCP Pediatrics; Visit Provider Student in an Organized Health Care Education/Training Program
DX: K58.9 Irritable bowel syndrome, unspecified (principal); F41.9 Anxiety disorder, unspecified; F32.A Depression, unspecified; G47.9 Sleep disorder, unspecified; F90.9 Attention-deficit hyperactivity disorder, unspecified type; F10.90 Alcohol use, unspecified, uncomplicated; R03.0 Elevated blood-pressure reading, without diagnosis of hypertension

== ENCOUNTER → 2025-09-22 16:12 | Outpatient (BNVA) | payer OTHER, SELFPAY | PROVIDERS: PCP Pediatrics; Visit Provider Student in an Organized Health Care Education/Training Program | DX: K58.9 Irritable bowel syndrome, unspecified (principal); F41.9 Anxiety disorder, unspecified; F32.A Depression, unspecified; G47.9 Sleep disorder, unspecified; F90.9 Attention-deficit hyperactivity disorder, unspecified type; F10.90 Alcohol use, unspecified, uncomplicated; R03.0 Elevated blood-pressure reading, without diagnosis of hypertension | CPT/HCPCS: 96127 ==